=== PATIENT | male | born 1965 | race Caucasian/White ===

== ENCOUNTER → 2017-11-01 | Outpatient (CLI) | payer OTHER ==
[~2017-11-01] MED LIST: ASCO-63 PO; GARL400T5 PO; MULTTAB58 PO
[2017-11-01 15:14] LABS: ALBUMIN 3.9 gm/dl (3.4-5.0); BLOOD UREA NITROGEN 17 mg/dl (7-18); CALCIUM 8.5 mg/dl (8.5-10.1); CARBON DIOXIDE 29 mmol/L (21-32); CREATININE 0.81 mg/dl (0.60-1.40); GLUCOSE 94 mg/dl (70-99); PHOSPHORUS 3.2 mg/dl (2.5-4.9); POTASSIUM 4.2 mmol/L (3.5-5.1); SODIUM 138 mmol/L (136-145); URIC ACID 4.3 mg/dl (2.6-7.2)
== END | disposition home or self-care (01) ==
LOC: C.LAB1850 13:55
PROVIDERS: ATTEND Internal Medicine Nephrology
DX: I10 Essential (primary) hypertension (principal)

== ENCOUNTER 2024-07-28 16:37 | Observation (INO) ==
--- NOTE | 2024-07-28 16:47 | Emergency Department Note ---
Impression & Plan Stroke-like symptoms, High blood pressure, Slurred speech, CVA (cerebral vascular accident) ED Provider Note NAME: TERESA BARBER AGE: 59 SEX: M : 1965 ARRIVES VIA: Walk-In INFORMANT: Patient, ED PROVIDER(S): Scotty Allen MD CHIEF COMPLAINT: Slurred speech MEDICAL DECISION MAKING: Patient presents due to concern for slurred speech as well as some facial decree sensation. IV was established and blood work was obtained. CT head and CT angiography of the head and neck were completed. No obvious overt deficits on exam of the patient did complain of maybe decree sensation left face when compared to the right. Blood work shows a normal white count H&H and platelet count kidney function is unremarkable with normal electrolytes. Patient's BSG 127. LFTs unremarkable normal troponin. The patient CT head did not show hypoattenuation left larios radiata age indeterminant the patient's head and neck CT angiography's do not show any large vessel occlusion but shows moderate to severe segmental stenosis of right MCA M1 stenosis origin of the left MCA at M2 and stenosis left ICA distal A2. Given these findings with the patient symptoms I did speak with telestroke Dr. Garcia who stated this would not require acute intervention or transfer. He was going to evaluate him on the cart and did recommend dual antiplatelet therapy. I subsequently did speak with the on-call hospitalist service Dr. Wahl. The patient was ordered a baby aspirin as well as Plavix 300 mg. Discussion w/ other healthcare providers: Dr. Garcia telestroke neurology Dr. Wahl inpatient medicine service Prior /Outside records reviewed: I reviewed part of a cardiology visit from Dr. Arguello from February 2024. History of hypertension. Differential diagnosis: Infection, dehydration, metabolic abnormality, hypo/hyperglycemia, electrolyte imbalance, anemia, UTI, pneumonia, thyroid dysfunction among others were considered. Diagnostics, as interpreted by me: ECG: Normal sinus rhythm, rate 74, normal intervals, normal axis no ST elevations. Cardiac monitoring: An order was placed for continuous cardiac monitoring. The monitor shows a rate of 75 with sinus rhythm. Patient was placed on pulse oximetry Medical decision rules: None Imaging studies: I informally interpreted the patient's CT head without obvious ICH with formal report to follow. HPI: Patient presents with his due to concerns for difficulty with speaking and reported slurred speech and difficulty with pronunciation. Patient reportedly did have some extremity numbness and tingling beginning on but the patient's difficulty with speech began 3 to 4 hours prior at which point the suggested that he present here. No head or neck pain no falls or trauma. The patient does not take any blood thinner medications. Patient denies any alcohol tobacco or drug use. The patient's blood pressure was systolic of 169 this morning and upon presentation to the emergency department was 249. Patient denies any chest pains or shortness of breath. He does admit that may have the left side of his face feels a little bit numb compared to the right. Reportedly in triage she did not have any focal deficits. He does not take any medications on a regular basis. PAST MEDICAL HISTORY: See Below PAST SURGICAL HISTORY: See Below SOCIAL HISTORY: See Below HOME MEDICATIONS: See Below ALLERGIES: See Below VITALS: See Below PHYSICAL EXAMINATION: GENERAL: NAD, non-toxic. EYE EXAM: Normal conjunctiva. PERRL, no anisocoria and EOM's grossly intact w/o pain. OROPHARYNX: Moist mucus membranes, grossly normal dentition. NECK: Trachea midline, no stridor. Supple, no nuchal rigidity, no adenopathy, non-tender. No signs of meningismus. FROM of the neck with good chin to chest and neck extension. LUNGS: Clear to auscultation. Normal chest wall mechanics. HEART: NSR, no MRG. ABDOMEN: Abdomen soft, non-tender, no masses, no rebound or guarding. BACK: No CVA TTP. SKIN: No rashes and no bruising. UPPER EXTREMITIES: Upper extremities are grossly normal. LOWER EXTREMITIES: Grossly normal, no edema. NEURO EXAM: A&O x3, cranial nerves II-XII grossly intact, normal speech, moves all 4 extremities. Good [id number], no drift and no overt sensory deficits although does state maybe the left side of the face is decreased compared to the right. Past Med/Surg History Problem List (Updated 07/28/24 @ 19:04 by Scotty Allen MD) CVA (cerebral vascular accident) (Acute) Slurred speech (Acute) Stroke-like symptoms (Acute) High blood pressure (Acute) Claudication Skin hypopigmentation (Acute) HTN, goal below 140/90 Surgical History History of appendectomy History of wisdom tooth extraction Family History Mother Family history of pancreatic cancer Father No problems noted. Brother Known health problems: none Other No family history of adverse response to anesthesia Denies family history of Ovarian cancer Prostate cancer Myocardial infarction Breast cancer Colorectal cancer Social History Smoking Status: Never smoker Second Hand Exposure: No; Do You Dip or Chew Tobacco: No; Hx Alcohol Use: No Hx Substance Use: No Preferred Language: [place] Communication Ability: Effective Visual Impairment: No Limitations Hearing Ability: Normal Collection Systems Consultant Required: No Beliefs That Will Affect Care: None marital status: Current Living Situation: Spouse and Family Current Living Situation Comment: Lives with and kids current occupational status: employed current occupation: [employer] Feels Safe at Home: Yes Childhood Exposure to Second-Hand Smoke: No Diet: regular caffeine: Yes Dental Care, Regularly: Yes Physical Activity Frequency: Daily Seatbelt Use: always Sunscreen Use: Yes Assistive Devices: Glasses Allergies Allergies Allergy/AdvReac Type Severity Reaction Status Date / Time No Known Allergies Allergy Verified 05/17/24 09:50 Home Meds Previous Rx's Medication Instructions Recorded betamethasone dipropionate 0.05 % 1 applic topical BID #45 grams 07/16/24 topical cream Results & Data (ED) Vital Signs Vital Signs - 24 hr 07/28/24 16:39 07/28/24 17:06 07/28/24 17:13 Temperature 36.3 C L Temperature Source Temporal Artery Scan Pulse Rate 78 72 69 Pulse Rate from SpO2 Sensor 70 Respiratory Rate 18 14 Respiratory Effort / Characteristics Non-Labored Respiratory Depth Normal Respiratory Pattern Regular Blood Pressure 240/130 H 211/109 H Blood Pressure Mean 166 143 Pulse Oximetry 95 92 Oxygen Delivery Method Room Air Sepsis Recent Fever Within 48 Hours No Sepsis New/Unexplained Change in Mental Status N/A Sepsis Action Taken by Nursing No Action Required 07/28/24 17:16 07/28/24 17:18 07/28/24 17:27 Temperature Temperature Source Pulse Rate 68 68 Pulse Rate from SpO2 Sensor 69 68 Respiratory Rate 8 L 14 Respiratory Effort / Characteristics Respiratory Depth Respiratory Pattern Blood Pressure 211/109 H Blood Pressure Mean 127 Pulse Oximetry 95 94 Oxygen Delivery Method Sepsis Recent Fever Within 48 Hours Sepsis New/Unexplained Change in Mental Status Sepsis Action Taken by Nursing 07/28/24 17:30 07/28/24 17:42 07/28/24 17:45 Temperature Temperature Source Pulse Rate 73 Pulse Rate from SpO2 Sensor 71 Respiratory Rate 15 Respiratory Effort / Characteristics Respiratory Depth Respiratory Pattern Blood Pressure 199/109 H 203/112 H Blood Pressure Mean 148 148 Pulse Oximetry 94 Oxygen Delivery Method Sepsis Recent Fever Within 48 Hours Sepsis New/Unexplained Change in Mental Status Sepsis Action Taken by Nursing 07/28/24 18:00 07/28/24 18:03 07/28/24 18:15 Temperature Temperature Source Pulse Rate 56 L 68 Pulse Rate from SpO2 Sensor 58 L 67 Respiratory Rate 12 22 Respiratory Effort / Characteristics Respiratory Depth Respiratory Pattern Blood Pressure 206/124 H Blood Pressure Mean 145 Pulse Oximetry 96 95 Oxygen Delivery Method Sepsis Recent Fever Within 48 Hours Sepsis New/Unexplained Change in Mental Status Sepsis Action Taken by Nursing 07/28/24 18:16 07/28/24 18:16 07/28/24 18:16 Temperature Temperature Source Pulse Rate Pulse Rate from SpO2 Sensor Respiratory Rate Respiratory Effort / Characteristics Respiratory Depth Respiratory Pattern Blood Pressure 218/128 H 218/128 H 218/128 H Blood Pressure Mean 159 159 159 Pulse Oximetry Oxygen Delivery Method Sepsis Recent Fever Within 48 Hours Sepsis New/Unexplained Change in Mental Status Sepsis Action Taken by Care Home Medications Current Medication List: was personally reviewed by me Laboratory Data Attestation: I reviewed the patient's lab results. 07/28/24 16:52 07/28/24 16:52 Lab Results 07/28/24 07/28/24 07/28/24 Range/Units 16:49 16:52 16:57 WBC 7.33 (4.8-10.8) K/ul RBC 5.39 (4.70-6.10) M/uL Hgb 15.0 (14.0-18.0) g/dl POC Hgb 15.3 (14.0-18.0) g/dl Hct 44.1 (42.0-52.0) % POC Hct 45 (42-52) % MCV 81.8 (80.0-100.0) fL MCH 27.8 (25.0-34.0) pg MCHC 34.0 (32.0-36.0) g/dL RDW Std Deviation 40.0 (36.4-46.3) fL RDW Coeff of Evangelist 13.6 (11.5-14.5) % Plt Count 189 (130-400) K/uL MPV 8.9 L (9.4-12.4) fL Immature Gran % (Auto) 0.3 % Neut % (Auto) 62.5 % Lymph % (Auto) 25.8 % Moody % (Auto) 8.0 % Eos % (Auto) 3.0 % Baso % (Auto) 0.4 % Neut # (Auto) 4.58 (1.40-6.50) K/uL Lymph # (Auto) 1.89 (1.20-3.40) K/uL Moody # (Auto) 0.59 (0.11-0.59) K/uL Eos # (Auto) 0.22 (0.00-0.50) K/uL Baso # (Auto) 0.03 (0.00-0.20) K/uL Immature Gran # (Auto) 0.02 (0.01-0.20) K/uL PT 10.4 (9.0-12.0) Seconds INR 1.0 (0.9-1.1) APTT 28 (21-31) Seconds PTT Ratio 1.0 POC Sodium 140 (135-144) mmol/L Sodium 139 (136-145) mmol/L POC Potassium 4.1 (3.3-5.0) mmol/L Potassium 4.1 (3.5-5.1) mmol/L POC Chloride 101 (101-112) mmol/L Chloride 104 (98-107) mmol/L Carbon Dioxide 32 (21-32) mmol/L POC Total CO2 26 (24-31) mmol/L Anion Gap 3 (3-11) POC Anion Gap 17.0 (16-25) mmol/L POC BUN 19 H (7-18) mg/dl BUN 18 (6-23) mg/dl Creatinine 1.22 (0.6-1.4) mg/dl POC Creatinine 1.3 (0.6-1.3) mg/dl Est Cr Clr Drug Dosing 68.1 ml/min eGFR 69.15 BUN/Creatinine Ratio 14.8 (10-20) Glucose 127 H (70-99(Fasting)) mg/dl POC Glucose 126 H (70-99) mg/dl POC Glucose (other) 127 H (70-99) mg/dl Calcium 8.9 (8.6-10.3) mg/dl POC Ioniz Calcium Holly 1.17 (1.12-1.32) mmol/l Magnesium 2.1 (1.7-2.4) mg/dl Total Bilirubin 0.8 (0.2-1.0) mg/dl AST 24 (13-39) U/L ALT 18 (7-52) U/L Alkaline Phosphatase 78 (34-104) U/L Troponin I High Sens 9.1 (0-20) pg/ml Total Protein 7.5 (6.0-8.3) gm/dl Albumin 4.3 (3.4-5.0) gm/dl Globulin 3.2 (2.5-4.0) gm/dl Albumin/Globulin Ratio 1.3 (0.9-2) Administered Medications Discontinued Medications Aspirin (Aspirin Chew 324 Mg) 81 mg PO NOW STA Stop: 07/28/24 18:19 Last Admin: 07/28/24 18:25 Dose: 81 mg Documented By: AM Clopidogrel Bisulfate (Clopidogrel Bisulfate 300 Mg Tab) 300 mg PO NOW STA Stop: 07/28/24 18:19 Last Admin: 07/28/24 18:24 Dose: 300 mg Documented By: AM Ioversol (Optiray 320 125ml) 119 ml IV ONCE ONE Stop: 07/28/24 17:10 Last Admin: 07/28/24 17:10 Dose: 119 ml Documented By: EAB Imaging Data Radiologist's Impression: Head CT 07/28/24 16:47 CT HEAD: HISTORY: Headaches TECHNIQUE: Noncontrast CT examination of the head is performed. Coronal and sagittal reformats were created. COMPARISON: FINDINGS: There is no evidence of intracranial hemorrhage, focal mass effect or midline shift. No fluid collection is identified. The ventricular system is midline and symmetric. No evidence of acute major vascular territory infarction. Chronic white matter ischemic changes. There is a small focal area of hypoattenuation in the left larios radiata measuring approximate 9 mm (series 2, image 16). This may represent part of the chronic white matter ischemic changes however is age-indeterminate in the absence of prior examinations. No calvarial fracture is identified. The paranasal sinuses and mastoids are well aerated. IMPRESSION: 9 mm hypoattenuation in the left larios radiata which is age-indeterminate given the absence of prior examinations for comparison purposes. This may represent a small focus of chronic white matter ischemic change however if clinical symptoms warrant, MRI may be obtained to accurately date this finding. Electronically signed by Robin Schafer 07-28-2024 5:49 PM Head CTA 07/28/24 16:47 HISTORY: Stroke TECHNIQUE: CT angiography of the head and the neck was performed. Coronal and sagittal reformats were created. IV CONTRAST: 100 mL of OMNIPAQUE 300 COMPARISON: None. FINDINGS: CTA HEAD: Stenotic/occlusive disease: There is a moderate to severe segmental stenosis in the right MCA M1 segment. Stenosis at the origin of a left MCA posterior division M2 branch (series 6, image 105). Segmental stenosis in left ALINA distal A2 segment Aneurysm: None Vascular malformation: None CTA NECK: Right carotid: No hemodynamically significant stenosis. Left carotid: No hemodynamically significant stenosis. Vertebrobasilar system: No hemodynamically significant stenosis. Aortic arch and subclavian arteries: No hemodynamically significant stenosis. Nonvascular structures: Unremarkable. Stenosis ranges are derived using NASCET criteria. IMPRESSION: No large vessel occlusion Moderate to severe segmental stenosis in the right MCA M1 segment. Stenosis at the origin of a left MCA posterior division M2 branch Segmental stenosis in left ALINA distal A2 segment Electronically signed by Robin Schafer 07-28-2024 5:49 PM Neck CTA 07/28/24 16:47 HISTORY: Stroke TECHNIQUE: CT angiography of the head and the neck was performed. Coronal and sagittal reformats were created. IV CONTRAST: 100 mL of OMNIPAQUE 300 COMPARISON: None. FINDINGS: CTA HEAD: Stenotic/occlusive disease: There is a moderate to severe segmental stenosis in the right MCA M1 segment. Stenosis at the origin of a left MCA posterior division M2 branch (series 6, image 105). Segmental stenosis in left ALINA distal A2 segment Aneurysm: None Vascular malformation: None CTA NECK: Right carotid: No hemodynamically significant stenosis. Left carotid: No hemodynamically significant stenosis. Vertebrobasilar system: No hemodynamically significant stenosis. Aortic arch and subclavian arteries: No hemodynamically significant stenosis. Nonvascular structures: Unremarkable. Stenosis ranges are derived using NASCET criteria. IMPRESSION: No large vessel occlusion Moderate to severe segmental stenosis in the right MCA M1 segment. Stenosis at the origin of a left MCA posterior division M2 branch Segmental stenosis in left ALINA distal A2 segment Electronically signed by Sunilazaliaxenia Robin 07-28-2024 5:49 PM Discharge Plan Visit Data Chief Complaint: TIA Symptoms Stated Complaint: SLURRED SPEACH, DROOPING, BALANCE, NUMBNESS ED Provider: Scotty Allen Discharge Problem: Stroke-like symptoms, High blood pressure, Slurred speech, CVA (cerebral vascular accident) Forms Stand Alone Forms: [employer] Prescriptions Prescriptions: No Action betamethasone dipropionate 0.05 % cream 1 applic topical BID Qty: 45 0RF Rx Instructions: Apply to areas of the extremities twice daily x 2 weeks, then stop x 2 weeks. Repeat course as directed. Referrals Referrals: Mya Hernandez MD [Primary Care Provider] - Discharge Problem: High blood pressure Qualifiers: Hypertension type: unspecified Qualified Code(s): I10 - Essential (primary) hypertension CVA (cerebral vascular accident) Qualifiers: CVA mechanism: unspecified Qualified Code(s): I63.9 - Cerebral infarction, unspecified
[2024-07-28 17:10] LABS: iSTAT Creatinine 1.3 mg/dl (0.6-1.3); iSTAT Hemoglobin 15.3 g/dl (14.0-18.0); iSTAT Ionized Calcium 1.17 mmol/l (1.12-1.32); iSTAT Potassium 4.1 mmol/L (3.3-5.0)
[2024-07-28] MEDS: OPTIRAY 320 125ml IV ONE (17:10)
[2024-07-28 17:15] LABS: Basophils # (auto) 0.03 K/uL (0.00-0.20); Basophils % (auto) 0.4 %; Eosinophils # (auto) 0.22 K/uL (0.00-0.50); Hematocrit (blood only) 44.1 % (42.0-52.0); Immature Granulocytes # (auto) 0.02 K/uL (0.01-0.20); Immature Granulocytes % (auto) 0.3 %; Lymphocytes # (auto) 1.89 K/uL (1.20-3.40); Lymphocytes % (auto) 25.8 %; Mean Corpuscular Hemoglobin 27.8 pg (25.0-34.0); Mean Corpuscular Volume 81.8 fL (80.0-100.0); Mean Platelet Volume 8.9 fL (9.4-12.4); Monocytes # (auto) 0.59 K/uL (0.11-0.59); Neutrophils # (auto) 4.58 K/uL (1.40-6.50); Neutrophils % (auto) 62.5 %; Platelet Count 189 K/uL (130-400); RDW Coefficient of Variation 13.6 % (11.5-14.5); Red Blood Count 5.39 M/uL (4.70-6.10); White Blood Count 7.33 K/ul (4.8-10.8)
[2024-07-28 17:33] LABS: Albumin Globulin Ratio 1.3 (0.9-2); Albumin Level 4.3 gm/dl (3.4-5.0); BUN Creatinine Ratio 14.8 (10-20); Bilirubin,Total 0.8 mg/dl (0.2-1.0); Calcium 8.9 mg/dl (8.6-10.3); Creatinine Clr Calc Pharmacy 68.1 ml/min; Globulin 3.2 gm/dl (2.5-4.0); Magnesium 2.1 mg/dl (1.7-2.4); Potassium 4.1 mmol/L (3.5-5.1); Total Protein 7.5 gm/dl (6.0-8.3)
[2024-07-28 17:40] LABS: Troponin I High Sensitivity 9.1 pg/ml (0-20)
[2024-07-28 17:48] LABS: Partial Thromboplastin Time 28 Seconds (21-31); Prothrombin Time 10.4 Seconds (9.0-12.0)
--- NOTE | 2024-07-28 17:49 | CT Scan Report ---
CT HEAD: HISTORY: Headaches TECHNIQUE: Noncontrast CT examination of the head is performed. Coronal and sagittal reformats were created. COMPARISON: FINDINGS: There is no evidence of intracranial hemorrhage, focal mass effect or midline shift. No fluid collection is identified. The ventricular system is midline and symmetric. No evidence of acute major vascular territory infarction. Chronic white matter ischemic changes. There is a small focal area of hypoattenuation in the left larios radiata measuring approximate 9 mm (series 2, image 16). This may represent part of the chronic white matter ischemic changes however is age-indeterminate in the absence of prior examinations. No calvarial fracture is identified. The paranasal sinuses and mastoids are well aerated. IMPRESSION: 9 mm hypoattenuation in the left larios radiata which is age-indeterminate given the absence of prior examinations for comparison purposes. This may represent a small focus of chronic white matter ischemic change however if clinical symptoms warrant, MRI may be obtained to accurately date this finding. Electronically signed by Robin Schafer 07-28-2024 5:49 PM
--- NOTE | 2024-07-28 17:49 | CT Scan Report ---
HISTORY: Stroke TECHNIQUE: CT angiography of the head and the neck was performed. Coronal and sagittal reformats were created. IV CONTRAST: 100 mL of OMNIPAQUE 300 COMPARISON: None. FINDINGS: CTA HEAD: Stenotic/occlusive disease: There is a moderate to severe segmental stenosis in the right MCA M1 segment. Stenosis at the origin of a left MCA posterior division M2 branch (series 6, image 105). Segmental stenosis in left ALINA distal A2 segment Aneurysm: None Vascular malformation: None CTA NECK: Right carotid: No hemodynamically significant stenosis. Left carotid: No hemodynamically significant stenosis. Vertebrobasilar system: No hemodynamically significant stenosis. Aortic arch and subclavian arteries: No hemodynamically significant stenosis. Nonvascular structures: Unremarkable. Stenosis ranges are derived using NASCET criteria. IMPRESSION: No large vessel occlusion Moderate to severe segmental stenosis in the right MCA M1 segment. Stenosis at the origin of a left MCA posterior division M2 branch Segmental stenosis in left ALINA distal A2 segment Electronically signed by Robin Schafer 07-28-2024 5:49 PM
[2024-07-28] MEDS: CLOPIDOGREL BISULFATE 300 MG TAB PO STA (18:24)
[2024-07-28] MEDS: ASPIRIN CHEW 324 MG PO STA (18:25)
[2024-07-28] MEDS ORDERED: PHARMACIST DISCHARGE MED REC CONSULT PRN (18:55)
[2024-07-28] MEDS ORDERED: ACETAMINOPHEN 325 MG TAB PO PRN (19:01)
--- NOTE | 2024-07-28 19:07 | History & Physical Report ---
Date of Service July 28, 2024 Assessment & Plan (1) CVA (cerebral vascular accident): Plan: Assessment: 1 acute cerebrovascular accident suspected. Already having changes in the left larios radiata. Also has some intracranial stenoses as described above including a significant stenosis of the right MCA M1 as well as the left MCA M2. Patient was a stroke alert in the ER. Telestroke's been consulted by the ER provider per the ER provider they recommended 81 of aspirin and 300 of Plavix these were ordered by the ER provider. Will continue 81 of aspirin and 75 of Plavix daily beginning tomorrow. I have commenced high intensity statin therapy at 80 mg of Lipitor daily to begin now. The patient's getting an MRI. Local neurology's been consulted. I directly communicated with them. Do an echocardiogram stroke protocol. PT OT and speech therapy. Permissive hypertension up to 220 mmHg systolically. The patient's symptoms include minimal right-sided facial droop, mild dysarthria, mild discoordination of the right upper extremity with fine motor movements. 2. History of hypertension. Will continue permissive hypertension for now. 3. Unknown lipid status. 80 of Lipitor now lipid panel fasting in the morning. 4. History of vitiligo. Plan: As described above. Please refer to orders for further planning. History of Present Illness Chief Complaint: Slurred speech, right upper extremity discoordination, mild right-sided facial droop, mild paresthesias of the upper extremity as well. Primary Care Provider: Mya Hernandez MD This is a pleasant 59-year-old male of [place] descent. On evening he started having some difficulty with his speech. He had some slurred speech/d ysarthria as well as some discoordination of his right hand. He was trying to sign his name on multiple documents and was having difficulty coordinating his hand movements to sign his name appropriately. The patient's symptoms of waxed and waned. However today according to the he and his he had some right sided facial droop which is still present minimally as well as some right arm weakness and discoordination and the ongoing dysarthria and presented to the ER for further evaluation and treatment. Upon presentation Emergency Department he was made a stroke alert. CT of the brain was positive for a possible evolving left larios radiata infarct. CTA of the head and neck were remarkable for a right MCA M1 stenosis in the left MCA M2 stenosis. Laboratory studies were unremarkable. The patient was found to be hypertensive most currently 218/128. Telestroke consultation was obtained by the ER provider. Recommended admission to the stroke service and stroke protocol. Per the ER provider telestroke recommended 81 of aspirin and 300 of Plavix. This was ordered by the ER provider. Will continue 75 of Plavix and 81 of aspirin daily beginning tomorrow. I have also commenced high intensity statin therapy in the form of Lipitor 80 mg daily to begin now. Will do an MRI of the brain. Echocardiogram. If consulted local neurology have communicated with them directly. Allergies Allergy/AdvReac Type Severity Reaction Status Date / Time No Known Allergies Allergy Verified 05/17/24 09:50 Home Medications Medication Instructions Recorded Confirmed Type betamethasone dipropionate 0.05 % 1 applic topical BID #45 grams 07/16/24 07/28/24 Rx topical cream Past Med/Surg History Problem List (Updated 07/28/24 @ 19:04 by Scotty Allen MD) CVA (cerebral vascular accident) (Acute) Slurred speech (Acute) Stroke-like symptoms (Acute) High blood pressure (Acute) Claudication Skin hypopigmentation (Acute) HTN, goal below 140/90 Surgical History History of appendectomy History of wisdom tooth extraction Family History Mother Family history of pancreatic cancer Father No problems noted. Brother Known health problems: none Other No family history of adverse response to anesthesia Denies family history of Ovarian cancer Prostate cancer Myocardial infarction Breast cancer Colorectal cancer Social History Smoking Status: Never smoker Second Hand Exposure: No; Do You Dip or Chew Tobacco: No; Hx Alcohol Use: No Hx Substance Use: No Preferred Language: Gib[place]tarian Communication Ability: Effective Visual Impairment: No Limitations Hearing Ability: Normal Paper Tester Required: No Beliefs That Will Affect Care: None marital status: Current Living Situation: Spouse and Family Current Living Situation Comment: Lives with and kids current occupational status: employed current occupation: [employer] Feels Safe at Home: Yes Childhood Exposure to Second-Hand Smoke: No Diet: regular caffeine: Yes Dental Care, Regularly: Yes Physical Activity Frequency: Daily Seatbelt Use: always Sunscreen Use: Yes Assistive Devices: Glasses Review of Systems Review of Systems: A 10 point review of system was obtained and unless otherwise stated here or in history of present illness are negative and noncontributory to chief complaint. Physical Exam Physical Exam: In General: In general very pleasant 59-year-old male of [place] descent. He is accompanied by his at the time my examination. He is alert and oriented x 3 and interacts appropriate pleasantly. It appears the patient does have dysarthria. However difficult for me to tell because of his accent. [place]tarian is not his first language, Monegasque is. However according to he and his he definitely has slurred speech therefore dysarthria I presume is present but again difficult for me to fully appreciate given his accent. He interacts appropriately and pleasantly. He denies any pain. HEENT: Minimal right sided facial droop. Atraumatic pupils are equal round and reactive to light bilaterally. No scleral icterus no conjunctival injection external auditory canals are patent septum is in the midline nose is without discharge oral mucosa is pink and moist without lesion. NECK: Supple no rigidity no lymphadenopathy no thyromegaly no carotid bruits no JVD no masses. HEART: Regular rate and rhythm I do not appreciate any ectopy or rub. No murmur. LUNGS: Clear to auscultation bilaterally and anteriorly with no evidence of adventitious sounds/wheezes rales or rhonchi. ABDOMEN: Soft nontender, no rebound, no peritoneal signs, positive bowel sounds, no appreciable organomegaly. EXTREMITIES: Intact, no peripheral cyanosis, clubbing or edema. Strength is adequate in his extremities x 4. His right upper extremity strength is adequate and essentially equal to that is his left upper extremity however he is right- hand dominant and accounting for hand dominance he does have minimally decreased strength in his right upper extremity. In addition he has discoordination of his right upper extremity with fine motor movements. No pathological reflexes. No pronator drift. No loss in sensation to fine pinprick. NEUROLOGICAL: Other than described above, cranial nerves II through XII are grossly intact with no focal deficit elicited upon examination. No tremor. Results & Data Results & Data Vital Signs (Past 12 Hours) Vital Signs Temp Pulse Resp BP Pulse Ox O2 Del Method 04/26/25 18:16 218/128 H 07/28/24 18:16 218/128 H 07/28/24 18:16 218/128 H 07/28/24 18:15 68 22 95 07/28/24 18:03 56 L 12 96 07/28/24 18:00 206/124 H 07/28/24 17:45 203/112 H 07/28/24 17:42 73 15 94 07/28/24 17:30 199/109 H 07/28/24 17:27 68 14 94 07/28/24 17:18 68 8 L 95 07/28/24 17:16 211/109 H 07/28/24 17:13 69 07/28/24 17:06 72 14 211/109 H 92 07/28/24 16:39 36.3 C L 78 18 240/130 H 95 Room Air Code Status & VTE Plan Code Status Full code. I personally discussed with patient at bedside. VTE Prophylaxis Plan VTE Prophylaxis will be ordered: Yes PG Care Time/CCT Total # of Minutes Spent Total Time Spent with Patient: Total time spent is greater than 50% in coordination of care (as documented) at patient's floor/unit and/or counseling patient: Coding Level of Care Code 06116 INT INP/OBS CARE 3/75MIN Diagnoses CVA (cerebral vascular accident) I63.9 CVA mechanism: unspecified (1) CVA (cerebral vascular accident) CVA mechanism: unspecified Qualified Code(s): I63.9 - Cerebral infarction, unspecified
[2024-07-28] MEDS: ATORVASTATIN 40 MG TAB PO STA (21:01)
[2024-07-29 06:49] LABS: Basophils # (auto) 0.03 K/uL (0.00-0.20); Basophils % (auto) 0.4 %; Eosinophils # (auto) 0.22 K/uL (0.00-0.50); Eosinophils % (auto) 3.2 %; Hematocrit (blood only) 44.1 % (42.0-52.0); Hemoglobin 14.4 g/dl (14.0-18.0); Immature Granulocytes # (auto) 0.03 K/uL (0.01-0.20); Immature Granulocytes % (auto) 0.4 %; Lymphocytes # (auto) 1.89 K/uL (1.20-3.40); Lymphocytes % (auto) 27.8 %; Mean Corpuscular Hgb Conc 32.7 g/dL (32.0-36.0); Mean Corpuscular Volume 82.6 fL (80.0-100.0); Monocytes # (auto) 0.67 K/uL (0.11-0.59); Monocytes % (auto) 9.9 %; Neutrophils # (auto) 3.95 K/uL (1.40-6.50); Neutrophils % (auto) 58.3 %; Platelet Count 182 K/uL (130-400); RDW Coefficient of Variation 13.4 % (11.5-14.5); RDW Standard Deviation 40.1 fL (36.4-46.3); Red Blood Count 5.34 M/uL (4.70-6.10); White Blood Count 6.79 K/ul (4.8-10.8)
[2024-07-29 07:14] LABS: BUN Creatinine Ratio 16.1 (10-20); Calcium 8.7 mg/dl (8.6-10.3); Chol HDL Ratio 3.4 (0-5); Creatinine Clr Calc Pharmacy 96.2 ml/min; Potassium 3.8 mmol/L (3.5-5.1)
[2024-07-29 07:42] VITALS: O2SAT 95
--- NOTE | 2024-07-29 08:16 | Hospitalist Progress Note ---
Date of Service July 29, 2024 Assessment & Plan (1) CVA (cerebral vascular accident): (2) Slurred speech: (3) Stroke-like symptoms: (4) High blood pressure: (5) HTN, goal below 140/90: Plan Acute CVA - CT brain positive for stenosis of R. MCA M1 and L. MCA M2 - Stroke alert in ED and telestroke consulted, started 81 ASA and 300 plavix - Patient to continue on 81mg ASA, Plavix 75mg, and Lipitor 80mg daily - Permissive HTN to systolic 220 - Facial droop with improvements; continued BL arm tingling/numbness and slurred speech. mildly discoordinated in fine UE movements with 5/5 strength - Echocardiogram pending, MRI brain pending, lipid panel wnl - Neurology consult placed; appreciate recs - Speech/PT/OT consults placed HTN - Permissive HTN to systolic 220 - Continue to follow with Dr. Hernandez outpatient, and likely begin anti- hypertensive medication as conservative management has failed Admission and Anticipated Discharge Date Admission Date: July 28, 2024 Teresa Sevilla is seen resting comfortably at bedside this morning. Patient denies chest pain, palpitations, headache, fever/chills, abdominal pain, nausea, vomiting and SOB. Patient endorses that speech is still slurred but that his R. sided facial drooping has improved. Patient endorses some numbness and tingling at his finger tips BL. Patient is afebrile and hemodynamically stable. Physical Exam Physical Exam: General: patient resting comfortably, NAD, non-toxic in appearance Skin: warm, dry, intact HEENT: NC/AT, anicteric sclera, conjunctiva without injection, moist mucus membranes. Heart: +S1/S2, regular, no m/r/g Lungs: equal air entry bilaterally, no rales/rhonchi/wheezes Abd: +BS, soft, NT/ND Ext: warm, no clubbing/cyanosis or edema Neuro: nonfocal, Mild to moderate dysarthria when responding to questions, facial droop seen on admit improved, continued BL numbness/tingling at fingertips, moving all extremities with 5/5 strength in all muscle groups. Results & Data Results & Data Vital Signs (Past 12 Hours) Vital Signs Temp Pulse Pulse Resp BP BP Pulse Ox 07/29/24 07:41 36.8 C 60 20 189/102 H 95 07/29/24 02:53 36.9 C 69 19 161/92 H 96 07/28/24 22:39 36.6 C 56 L 20 194/108 H 95 07/28/24 22:10 60 07/28/24 20:19 58 L 18 218/114 H 98 O2 Del Method 07/29/24 07:41 Room Air 07/29/24 02:53 Room Air 07/28/24 22:39 Room Air 07/28/24 22:10 07/28/24 20:19 Room Air Resident Activity Tracking Resident Involvement: Resident Care Provided Care Provided: Adult Hospital Medicine (1) CVA (cerebral vascular accident) CVA mechanism: unspecified Qualified Code(s): I63.9 - Cerebral infarction, unspecified (4) High blood pressure Hypertension type: unspecified Qualified Code(s): I10 - Essential (primary) hypertension
[2024-07-29 08:17] LABS: Estimated Average Glucose 117 mg/dl; Hemoglobin A1C 5.7 % (4.5-5.6)
[2024-07-29] MEDS: ASPIRIN 81 MG ECTAB PO SCH (09:37)
[2024-07-29] MEDS: CLOPIDOGREL BISULFATE 75 MG TAB PO SCH (09:38)
[2024-07-29] MEDS: ATORVASTATIN 40 MG TAB PO SCH (09:38)
--- NOTE | 2024-07-29 10:00 | Neurology Consultation ---
Date of Consultation July 29, 2024 Assessment & Plan (1) CVA (cerebral vascular accident): Plan 59-year-old male with probable subacute infarct within the left larios radiata, presenting with clumsy hand dysarthria stroke syndrome. He has a history of hypertension and has elected to not continue with treatment. He does have intracranial arterial stenosis, bilateral MCAs, left ALINA, no significant occlusive disease within the cervical circulation. I agree with aspirin and Plavix as ordered, dual antiplatelet therapy for the next 3 weeks, afterwards would discontinue Plavix in favor of aspirin 81 mg/day, monotherapy. Agree with atorvastatin as ordered, goal LDL 70 or less May allow for permissive hypertension acutely, per stroke protocol. However, going forward, he will likely need to start an antihypertensive. Patient will need to follow-up with his PCP for ongoing management of hypertension and other cardiovascular risk factors. Consultation with PT/OT/speech therapy. Consider 30-day mobile cardiac outpatient telemetry. I will review patient's brain MRI when completed and make any additional recommendations if necessary. Please call with any questions. History of Present Illness Reason for Consultation: Stroke Requesting Physician: Vish Attending Physician: Gilberto Whitlock DO History of Present Illness The patient is a 59-year-old male who presented to the emergency department yesterday with a chief complaint of clumsiness of the right hand which began 2 days prior to presentation, the slurred speech began about 4 hours prior to presentation. The symptoms have been persistent. He denies headache, vision disturbance, or any difficulty with the legs. He has a history of hypertension but has been reluctant to continue with treatment. A CT of the head revealed an age-indeterminate infarct within the left larios radiata. A CTA of the head and neck revealed bilateral MCA stenosis, and a left MCA stenosis. No occlusive lesion within the cervical circulation. I independently reviewed these images. He did have an echocardiogram completed in March 2024 that was normal. An electrocardiogram completed yesterday revealed a normal sinus rhythm. Allergies Allergy/AdvReac Type Severity Reaction Status Date / Time No Known Allergies Allergy Verified 05/17/24 09:50 Home Medications Medication Instructions Recorded Confirmed Type betamethasone dipropionate 0.05 % 1 applic topical BID #45 grams 07/16/24 07/28/24 Rx topical cream Patient History Surgical History History of appendectomy History of wisdom tooth extraction Family History Mother Family history of pancreatic cancer Father No problems noted. Brother Known health problems: none Other No family history of adverse response to anesthesia Denies family history of Ovarian cancer Prostate cancer Myocardial infarction Breast cancer Colorectal cancer Social History Smoking Status: Never smoker Second Hand Exposure: No; Do You Dip or Chew Tobacco: No; Hx Alcohol Use: No Hx Substance Use: No Preferred Language: Northern Irish Communication Ability: Effective Visual Impairment: No Limitations Hearing Ability: Normal Bus Steward Required: No Beliefs That Will Affect Care: None marital status: Current Living Situation: Spouse Current Living Situation Comment: Lives with and kids current occupational status: employed current occupation: S[employer] Feels Safe at Home: Yes Childhood Exposure to Second-Hand Smoke: No Diet: regular caffeine: Yes Dental Care, Regularly: Yes Physical Activity Frequency: Daily Seatbelt Use: always Sunscreen Use: Yes Assistive Devices: Glasses Review of Systems Constitutional: no fever and no chills Eyes: no blind spots and no diplopia Ear, Nose, Mouth, Throat: no hearing loss Respiratory: no cough and no dyspnea Cardiovascular: no chest pain and no palpitations Gastrointestinal: no nausea and no vomiting Genitourinary: no dysuria Musculoskeletal: no myalgia Integumentary: no rash and no lesions Neurologic: as per Subjective / HPI Psychiatric: no depression and no anxiety Hematologic / Lymphatic: no easy bleeding and no easy bruising Exam (Neuro) Constitutional: well developed and well nourished; no acute distress Eyes: normal visual burns by confrontation, PERRL, normal accommodation and EOM intact bilaterally; no nystagmus Neurologic: Oriented to:: Person, Place and Time Memory: Short Term Intact and Remote Intact Attention: Span Intact and Concentration Intact Language: Naming Objects and Repeating Phrases Speech Fluency: negative Dysarthria Speech Aphasia: negative Aphasia Fund of Knowledge: Current Events, Past History and Vocabulary Cranial Nerves: Normal II (Visual burns full to confrontation, visual acuity normal), III, IV, (Pupils equal round reactive to light and accommodation, eye movements normal), V (Facial sensation intact), VIII (Hearing intact), IX, X (Palate elevates to midline), XI (Shoulder shrug intact) and XII (Tongue protrudes to midline); Abnorm VII (There is mild flattening of the right nasolabial fold) Motor Strength: Normal Lower Extremities and Pronator Drift; negative Normal Upper Extremities (Mild clumsiness and weakness of the right hand) Motor Tone: Normal Lower Ex tremities and Normal Upper Extremities Muscle Bulk/Involuntary Movements: No Involuntary Movements; negative Muscle Atrophy Sensation: Light Touch Intact, Pain/Temperature Intact, Vibration Intact and Proprioception Intact Coordination: Normal; negative Limited Balance, Dysdiadochokinesia, Finger-Nose Abnormal or Heel-Santos Abnormal Deep Tendon Reflexes: Rt Triceps: 2+, Lt Triceps: 2+, Rt Biceps: 2+, Lt Biceps: 2+, Rt Brachioradialis: 2+, Lt Brachioradialis: 2+, Rt Patellar: 2+, Lt Patellar: 2+, Rt Ankle: 2+ and Lt Ankle: 2+ Special Tests: negative Babinski Present Gait: Normal Station and Gait Details: There is decreased facility of fine finger movements for the right hand in a fixed with arm roll over the right. Results & Data Vital Signs (Past 12 Hours) Vital Signs Temp Pulse Pulse Resp BP Pulse Ox O2 Del Method 07/29/24 07:41 36.8 C 60 20 189/102 H 95 Room Air 07/29/24 02:53 36.9 C 69 19 161/92 H 96 Room Air 07/28/24 22:39 36.6 C 56 L 20 194/108 H 95 Room Air 07/28/24 22:10 60 Laboratory Results WBC 6.79, hemoglobin 14.4, hematocrit 44.1, platelet count 182, sodium 139, potassium 3.8, BUN 15, creatinine 0.93, glucose 100, hemoglobin A1c 5.7, calcium 8.7, magnesium 2.1, AST 24, ALT 18, CRP less than 0.50, triglycerides 97, cholesterol 189, LDL 114, HDL 56, TSH 2.065 Coding Level of Care Code 99893 INT INP/OBS CARE 75MIN Diagnoses CVA (cerebral vascular accident) I63.9 CVA mechanism: unspecified Time Spent (min) 75 Comment Total time includes patient contact, chart review, counseling, note preparation (1) CVA (cerebral vascular accident) CVA mechanism: unspecified Qualified Code(s): I63.9 - Cerebral infarction, unspecified
--- NOTE | 2024-07-29 10:35 | XRay Report ---
EXAM: Radiographs of the Orbits Foreign Body INDICATION: MRI clearance TECHNIQUE: Frontal view(s) of the orbits. COMPARISON: No relevant prior studies available. FINDINGS: Bones/joints: No fracture, erosion or dislocation. Sinuses: There is a retention cyst or polyp in the floor of the right maxillary sinus. Soft tissues: Aside from dental hardware, no foreign body identified. IMPRESSION: Aside from dental hardware, no foreign body identified. ACT 112: N/A Electronically signed by Michelle Beauchamp 07-29-2024 10:35 AM
--- NOTE | 2024-07-29 13:11 | Electrocardiogram Report ---
Test Reason : Blood Pressure : */* mmHG Vent. Rate : 74 BPM Atrial Rate : 74 BPM P-R Int : 144 ms QRS Dur : 88 ms QT Int : 364 ms P-R-T Axes : 51 15 43 degrees QTcB Int : 404 ms Normal sinus rhythm Minimal voltage criteria for LVH, may be normal variant ( Rigo product ) Borderline ECG When compared with ECG of 24-Feb-2024 10:52, No significant change was found Confirmed by Jp Thompson ([id number]) on 07/29/2024 1:11:23 PM Referred By: Confirmed By: Jp Thompson
--- NOTE | 2024-07-29 14:57 | Magnetic Resonance Report ---
EXAM: MR brain wo con CLINICAL HISTORY: stroke symptoms TECHNIQUE: MRI of the brain was performed without contrast with multiplanar sequences obtained. COMPARISON: Comparison is made with prior CT imaging studies dated 07/28/2024 . FINDINGS: Brain Parenchyma: Focal area of restricted diffusion (bright diffusion and low ADC signal) at the left basal ganglia and posterior limb of internal capsule measuring about 2 x 1.5 cm with no perilesional edema or mass effect, findings are in keeping with acute infarction. Multifocal areas of chronic microvascular ischemic changes are seen in deep and subcortical white matter bilaterally in the form of T2/ FLAIR hyperintense foci. No evidence of acute hemorrhage. Normal grier-white matter differentiation. No mass lesions or focal cortical abnormalities identified. Ventricles and Sulci: Normal size and configuration of the lateral ventricles, third ventricle, and fourth ventricle. No evidence of hydrocephalus or ventriculomegaly. Sylvian fissures, sulci, and cisterns are within normal limits. Posterior Fossa: Cerebellum and brainstem appear normal without evidence of mass lesions or signal abnormalities. Low-lying cerebellar tonsils. Cranial Nerves: Normal course and appearance of cranial nerves identified. Vessels: No evidence of vascular malformations or aneurysms. Intracranial arteries and veins appear normal without evidence of stenosis or occlusion. Orbits and Skull Base: Orbits and skull base structures are normal without evidence of abnormalities. Right maxillary antral retention cyst. IMPRESSION: 1. Left basal ganglia and posterior limb of internal capsule acute infarction. 2. No evidence of acute hemorrhage. 3. Chronic microvascular white matter ischemic changes. 4. Findings confirm the CT study dated 07/28/2024. [facility] was called at at 01:46 PM OSTEOLOGIST 07/29/2024, Jennifer SWEENEY was informed regarding critical medial findings. Electronically signed by Micheal Cabrales 07-29-2024 2:55 PM
[2024-07-29 15:23] VITALS: BP 175/105; PULSE 59; RESP 19; TEMP 97.5
--- NOTE | 2024-07-29 16:27 | Billing Data ---
Date of Service July 29, 2024 Coding Level of Care Code 64109 INP/OBS DISCH >30 MIN
--- NOTE | 2024-07-29 16:27 | Discharge Summary ---
Discharge Summary Date of Service July 29, 2024 Principal Dx & Hospital Course #1 = Principal Diagnosis (1) CVA (cerebral vascular accident): (2) Slurred speech: (3) Stroke-like symptoms: (4) High blood pressure: (5) HTN, goal below 140/90: Plan Acute CVA - MCA CVAatherosclerotic, predominantly driven by hypertension. - Fortunately speech and fine motor deficits appear to be improving. Outpatient therapy. - Secondary risk reduction with aspirin, Plavix (for 3 weeks then aspirin alone), atorvastatin, lisinopril - lifestyle change discussed as well - safe/stable for home HTN - Permissive HTN on admission, initiate lisinopril at discharge. Basic metabolic panel in about a week. Monitor blood pressure at home and adjust medications as necessary extensive discussions with patient and family, extensive discharge instructions written. Outpatient PCP and neurology follow-up. Notes For Next Care Provider Medication Changes From Visit asa, plavix, atorvastatin, lisinopril Admission HPI Per Admitting Provider This is a pleasant 59-year-old male of [place] descent. On evening he started having some difficulty with his speech. He had some slurred speech/dysarthria as well as some discoordination of his right hand. He was trying to sign his name on multiple documents and was having difficulty coordinating his hand movements to sign his name appropriately. The patient's symptoms of waxed and waned. However today according to the he and his he had some right sided facial droop which is still present minimally as well as some right arm weakness and discoordination and the ongoing dysarthria and presented to the ER for further evaluation and treatment. Upon presentation Emergency Department he was made a stroke alert. CT of the brain was positive for a possible evolving left larios radiata infarct. CTA of the head and neck were remarkable for a right MCA M1 stenosis in the left MCA M2 stenosis. Laboratory studies were unremarkable. The patient was found to be hypertensive most currently 218/128. Telestroke consultation was obtained by the ER provider. Recommended admission to the stroke service and stroke protocol. Per the ER provider telestroke recommended 81 of aspirin and 300 of Plavix. This was ordered by the ER provider. Will continue 75 of Plavix and 81 of aspirin daily beginning tomorrow. I have also commenced high intensity statin therapy in the form of Lipitor 80 mg daily to begin now. Will do an MRI of the brain. Echocardiogram. If consulted local neurology have communicated with them directly. Updated Medication List Medication Instructions Recorded Confirmed Type betamethasone dipropionate 0.05 % 1 applic topical BID #45 grams 07/16/24 07/28/24 Rx topical cream Pharmacist Discharge Consult 1 ea Not Applicable UD PRN 07/29/24 Rx [Pharmacist Discharge Med Rec discharge discussion #1 applic Consult] aspirin 81 mg tablet,delayed 81 mg PO DAILY #30 tabs 07/29/24 Rx release atorvastatin 40 mg tablet 80 mg (2 x 40 mg) PO QAM #30 tabs 07/29/24 Rx clopidogrel 75 mg tablet 75 mg PO QAM #21 tabs 07/29/24 Rx lisinopril 20 mg tablet 20 mg PO DAILY #30 tabs 07/29/24 Rx Hospital Stay Data Consultations 07/28/24 18:33 ED Decision to Admit Stat 07/28/24 18:55 Consult Neurology Routine Diagnostic Imagining Performed 07/28/24 16:47 CT angio head w con Stat CT angio neck with con Stat CT head/brain wo con Stat 07/29/24 09:33 MR brain wo con Stat 07/29/24 16:35 CT head/brain wo con Routine Pending Results Patient Have Any Pending Studies at Discharge: Yes (echocardiogram to be read by cardiology) Discharge Instructions Given to Patient (Per Discharging Provider) stroke - as we discussed, a stroke is when there is a blockage of blood flow to the brain leading to /damaged brain tissue. In your case, the stroke was because of a blockage in what is called the middle cerebral artery, and there was then a small area of downstream damaged tissue - when an ischemic stroke like this occurs, usually it is not simply that the blockage grew, and grew until the blood vessel went shottypically it is that the blockage is irregular with thinner "skin" that is able to split openwhen the lining of the blood vessel ("skin") splits open and then our body forms a clot. In your case, the clot was likely quickly swept "downstream" where it lodged in smaller blood vessels and caused the damage. As we discussed this typically happens extremely fast (i.e. right before you started to notice the difference in speech) - while we cannot undo the damage that has been done, fortunately our brain is often very good at being able to work around damaged areas. We will be setting in a referral for formal therapy, but I also am a big advocate of doing your own version of therapy every dayfor the speech problems, reading out loud and talking a lot; for the hand weakness doing fine motor skills like writing, using a fork and spoon, etc. - typically when you force your brain/body to do things that it is not able to do, it starts to learn to work around the damage. - Medically, the main thing that we are able to do is to prevent the next stroke/prevent new blockages of blood vessels. To do this, we will utilize aspirin, Plavix, atorvastatin, and lisinopril --- aspirin and Plavix: These are both "mild blood thinners" (antiplatelet blood thinners) that slow down the first part of our bodies clotting responsetypically what happens with these is if we try to form a clot on a "split" in the blood vessel the clot is less dense and her body is more able to dissolve it before there is damage, or when there is less damage already done. You will be on both for 3 weeks, and then the aspirin essentially indefinitely ---- atorvastatin: While people think of medications like atorvastatin as a cholesterol medicine, its main role is really to stabilize the plaque/blockage that is in your blood vessel alreadymedications like Lipitor make the "split in the blood vessel" far less likely to happen to begin with. Most people tolerate this medicine extremely well. There is a less than 1% chance of developing muscle aches (and this is never an accentuation of aches/pains that you already have, but rather an entirely unique syndrome typically of whole body aches ("like you have the flu but you do not have the flu") and if it were to occur it usually goes away fairly quickly after stopping the medication. ---- Lisinopril: The main risk that you have for ongoing atherosclerosis/hardening/clogging of arteries is the blood pressure. We definitely need to get it under better control. Like we discussed, unlike other "metabolic diseases" (such as diabetes or high cholesterol) high blood pressure has a much bigger genetic component to it; and the "mechanism" behind that genetic component frequently has to do with how our kidneys make hormones that squeeze down blood vessels, or how her kidneys process water and electrolytes. Because of this, while we do not have a "magic fix" for how our kidneys are inappropriately raising her blood pressure, the most effective medicines at not really just controlling the blood pressure numbers, but it truly preventing future heart attacks and strokes, tend to be ones that interface with how our kidneys are inappropriately raising our blood pressure. Lisinopril slows down the production of one of the hormones that our kidneys make that squeezes down blood vessels. Because of this it tends to lower the pressure in our kidneysand then in our whole body. For most people this is a very beneficial medicine at not just lowering the blood pressure, but preventing future heart attacks and strokes. Because it does reduce pressure on her kidneys, for most people it is also protective of kidneysbut a very small percentage of people have kidneys that require the extra pressure to maintain their workloadwhile this is exceedingly unlikely to be you, anytime we start these medicines we do recommend getting lab work (basic metabolic panel/BMP) 1-2 weeks after starting it. As we discussed, it is typically a once a day medicine, but as you are following your blood pressure at home, if you see that your pressures are very good when the medicine is working, but there is a clear period where it wears off, instead of increasing the dose higher, sometimes we can take the same dose and divide it into twice a day. Eating and exercise: As we discussed, while the medications are the mainstay of preventing a future stroke and preventing further atherosclerosis/hardening/clogging of arteries, eating and exercise changes can be enormously beneficial as well. Eating habits typically are best when we eat predominantly fruits and vegetables, lean sources of protein (such as chicken without the skin, pork without the fat, or fish), and avoid simple/starch/bread/potato type carbohydrates as well as saturated fats (red meat, fried foods, chicken with the skin, snack food fats) - exercise is most beneficial whenever we do something that gets our heart rate up for 20-30 minutes at a time, ideally every single day. Of note, an echocardiogram (ultrasound of your heart) was done as part of the complete workup for the strokethis has not yet been read by the expanding machine operator, but I do not expect anything other than normal findings. The reason this is done in the context of stroke is a small percentage of patients will have heart rhythms/heart clots that cause the strokebecause your stroke was so straight/clearly tied to the blockage in your middle cerebral artery, I highly doubt that this echocardiogram will show any significant findings. to do: -take aspirin, plavix, lisinopril, atorvastatin daily -expect a call to get scheduled with formal therapy to work on recovery; call Dr Hernandez's office if you haven't heard from anyone soon -work on the "weak points" yourself a ton - read out loud, use your weak hand as much as you can -check your blood pressure about twice a day (randomly) and record it to review with Dr Hernandez so she can adjust the lisinopril if needed -keep eating the way you are and look for areas to improve further if you can -work towards 20-30minutes of light cardiovascular exercise daily -have labwork (BMP) checked in 1-2 weeks -follow up with Dr Hernandez and Dr Woo both over the coming weeks Total Time Total Time Spent Total Time Spent (In Minutes): >30
[2024-07-29] MEDS: STROKE PATIENT DISCHARGE STA (17:17)
--- NOTE | 2024-07-30 13:08 | XCELERA ---
[id number]
--- NOTE | 2024-07-31 09:58 | Pharmacy Report ---
Pharmacist Stroke Counseling - Date of Service July 31, 2024 - Scope: Pharmacy has been consulted to provide medication discharge counseling for this patient admitted with ischemic stroke as per the Pharmacist Discharge Counseling for Stroke Patients Protocol. - Medications on Discharge: New Rx's Medication Instructions Recorded betamethasone dipropionate 0.05 % 1 applic topical BID #45 grams 07/16/24 topical cream Pharmacist Discharge Consult 1 ea Not Applicable UD PRN 07/29/24 [Pharmacist Discharge Med Rec discharge discussion #1 applic Consult] aspirin 81 mg tablet,delayed 81 mg PO DAILY #30 tabs 07/29/24 release atorvastatin 40 mg tablet 80 mg (2 x 40 mg) PO QAM #30 tabs 07/29/24 clopidogrel 75 mg tablet 75 mg PO QAM #21 tabs 07/29/24 lisinopril 20 mg tablet 20 mg PO DAILY #30 tabs 07/29/24 - Action: The above medications, specifically ones for stroke treatment/prophylaxis, have been reviewed in detail with the patient and/or patient telephone sales representative(s) prior to discharge. This includes indication, common adverse reactions, drug interactions, and medication administration. Medication counseling has been employed using the teach-back method to ensure understanding. - Outcome: The patient and/or patient telephone sales representative(s) have demonstrated understanding of the medications. Thank you for allowing pharmacy to be involved in the care of this patient. Please call [phone] with any additional questions
== END 2024-07-29 17:26 | disposition home or self-care (01) | DRG 66 ==
LOC: ED 16:37 → SUATTDRO 19:01 → 2E 19:01 → INTOOBSV 19:01 → 2E 20:19